=== PATIENT | female | born 1970 ===

== ENCOUNTER → 2016-04-14 | Outpatient (CLI) | payer OTHER ==
--- NOTE | 2016-04-14 10:53 | DX ---
Right Knee, Five Views April 14, 2016 at 10:19 a.m. Clinical History: 46-year-old female with pain along the medial aspect of the knee, with swelling aft er a twisting injury while skiing yesterday. ICD 10 Diagnostic Code: S89.91XA. Comparison Study: None. Findings: Bone mineralization is preserved. There is no acute fracture or dislocation. There is a mil d degree of mediofemoral-tibial compartment narrowing. There is a small suprapatellar joint effusion. There is no patellofemoral joint space narrowing, translation, or tilting. There is a normal-variant fabella seen posterolaterally. Impression: 1. Small suprapatellar joint effusion. 2. There is no acute osseous abnormality. If there is further clinical concern regarding the patient's knee pain, MR imaging could be considere d.
== END ==
LOC: BMCIMAGING 10:13
PROVIDERS: ATTEND Family Medicine
DX: M25.561 Pain in right knee (principal); M25.461 Effusion, right knee; X50.0XXA Overexertion from strenuous movement or load, initial encounter; Y93.23 Activity, snow (alpine) (downhill) skiing, snowboarding, sledding, tobogganing and snow tubing